=== PATIENT | male | born 1945 | race Caucasian/White ===

== ENCOUNTER 2016-10-05 10:06 | Emergency (ER) | payer MEDICARE, OTHER ==
[~2016-10-05] VITALS: Ht 177.8 cm; Wt 100.0 kg
[~2016-10-05 10:06] MED LIST: HYCOS PO; LEVA750T PO; LEVO.1 PO; PRED50TA PO; TAMS0.4C67 PO
[2016-10-05 10:08] VITALS: BP 156/95; PULSE 77; RESP 15; TEMP 98.2; O2SAT 98
[2016-10-05] MEDS ORDERED: SODIUM CHLOR 0.9% 1000 ML INJ 1,000 ML IV SCH (12:43)
--- NOTE | 2016-10-05 12:44 | PD ---
HPI Chief Complaint: Abdominal Pain Time Seen by Provider: 12:44 Travel History International Travel<30 days: No Contact w/Intl Traveler<30days: No Traveled to known affect area: No History of Present Illness HPI 70-year-old male presents to the emergency apartment for evaluation right lower quadrant pain since August 18. Patient states he has seen his primary care provider about this but has not had any imaging studies done. States the pain continues to get worse and he is concerned he may have a hernia that is trapped. Denies any nausea or vomiting. States that he has had no change in his bowel movements. He's been having normal voids all which are typically delayed for him. Denies any fever or chills. He has no other symptoms reported this time. [facility] Past Medical History Arthritis: Yes Genitourinary: Yes (BPH) Immunizations Current: No Thyroid Disease: Yes (hypo on levo) Social History Alcohol Use: Yes (ON OCCASION) Tobacco Use: No Substance Use: No Allergies-Medications (Allergen,Severity, Reaction): Coded Allergies: No Known Allergies (Unverified , 10/05/16) Reported Meds & Prescriptions Reported Meds & Active Scripts Active Reported Finasteride 5 Mg Tab 5 Mg PO DAILY Do not crush. Alfuzosin HCl ER (Alfuzosin HCl) 10 Mg Tab Levothyroxine (Levothyroxine Sodium) 75 Mcg Tab 75 Mcg PO DAILY Review of Systems Except as stated in HPI: all other systems reviewed are Neg Physical Exam Narrative GENERAL: Well-nourished ambulatory male patient in no acute distress SKIN: Warm and dry. HEAD: Atraumatic. Normocephalic. EYES: Pupils equal and round. No scleral icterus. No injection or drainage. ENT: No nasal bleeding or discharge. Mucous membranes pink and moist. NECK: Trachea midline. No JVD. CARDIOVASCULAR: Regular rate and rhythm. No murmur appreciated. RESPIRATORY: No accessory muscle use. Clear to auscultation. Breath sounds equal bilaterally. GASTROINTESTINAL: Abdomen soft, nondistended. Tenderness elicited to palpation in the right lower quadrant. No rebound tenderness or guarding. Hepatic and splenic margins not palpable. MUSCULOSKELETAL: No obvious deformities. No clubbing. No cyanosis. No edema. NEUROLOGICAL: Awake and alert. No obvious cranial nerve deficits. Motor grossly within normal limits. Normal speech. PSYCHIATRIC: Appropriate mood and affect; insight and judgment normal. Data Data Last Documented VS Vital Signs Date Time Temp Pulse Resp B/P Pulse Ox O2 Delivery O2 Flow Rate FiO2 10/05/16 16:02 72 18 146/71 97 Room Air 10/05/16 10:08 98.2 Orders Complete Blood Count With Diff (10/05/16 12:43) Comprehensive Metabolic Panel (10/05/16 12:43) Lipase (10/05/16 12:43) Prothrombin Time / Inr (Pt) (10/05/16 12:43) Act Partial Throm Time (Ptt) (10/05/16 12:43) Urinalysis - C+S If Indicated (10/05/16 12:43) Ct Abd/Pel W Iv Contrast(Rout) (10/05/16 12:43) Iv Access Insert/Monitor (10/05/16 12:43) Ecg Monitoring (10/05/16 12:43) Oximetry (10/05/16 12:43) Sodium Chlor 0.9% 1000 Ml Inj (Ns 1000 M (10/05/16 12:43) Sodium Chloride 0.9% Flush (Ns Flush) (10/05/16 12:45) Electrocardiogram (10/05/16 12:43) Oral Contrast - Adult (10/05/16 12:46) Diatrizoate Liq ( Gastroview Liq) (10/05/16 13:10) Iohexol 350 Inj (Omnipaque 350 Inj) (10/05/16 14:38) Labs Laboratory Tests Test 10/05/16 10/05/16 12:52 13:15 White Blood Count 8.0 TH/MM3 Red Blood Count 4.88 MIL/MM3 Hemoglobin 14.8 GM/DL Hematocrit 43.4 % Mean Corpuscular Volume 88.9 FL Mean Corpuscular Hemoglobin 30.2 PG Mean Corpuscular Hemoglobin 34.0 % Concent Red Cell Distribution Width 12.8 % Platelet Count 199 TH/MM3 Mean Platelet Volume 7.9 FL Neutrophils (%) (Auto) 75.7 % Lymphocytes (%) (Auto) 19.1 % Monocytes (%) (Auto) 4.3 % Eosinophils (%) (Auto) 0.7 % Basophils (%) (Auto) 0.2 % Neutrophils # (Auto) 6.1 TH/MM3 Lymphocytes # (Auto) 1.5 TH/MM3 Monocytes # (Auto) 0.3 TH/MM3 Eosinophils # (Auto) 0.1 TH/MM3 Basophils # (Auto) 0.0 TH/MM3 CBC Comment DIFF FINAL Differential Comment Prothrombin Time 10.9 SEC Prothromb Time International 1.0 RATIO Ratio Activated Partial 27.3 SEC Thromboplast Time Sodium Level 143 MEQ/L Potassium Level 3.8 MEQ/L Chloride Level 105 MEQ/L Carbon Dioxide Level 31.4 MEQ/L Anion Gap 7 MEQ/L Blood Urea Nitrogen 15 MG/DL Creatinine 0.93 MG/DL Estimat Glomerular Filtration 81 ML/MIN Rate Random Glucose 92 MG/DL Calcium Level 9.0 MG/DL Total Bilirubin 0.8 MG/DL Aspartate Amino Transf 18 U/L (AST/SGOT) Alanine Aminotransferase 21 U/L (ALT/SGPT) Alkaline Phosphatase 63 U/L Total Protein 7.3 GM/DL Albumin 3.9 GM/DL Lipase 78 U/L Urine Color YELLOW Urine Turbidity CLEAR Urine pH 5.5 Urine Specific [place] 1.023 Urine Protein NEG mg/dL Urine Glucose (UA) NEG mg/dL Urine Ketones 40 mg/dL Urine Occult Blood NEG Urine Nitrite NEG Urine Bilirubin NEG Urine Urobilinogen LESS THAN 2.0 MG/DL Urine Leukocyte Esterase SMALL Urine RBC 1 /hpf Urine WBC 2 /hpf Urine Squamous Epithelial <1 /hpf Cells Urine Mucus FEW /lpf Microscopic Urinalysis Comment CULT NOT INDICATED MDM Medical Decision Making Medical Screen Exam Complete: Yes Emergency Medical Condition: Yes Medical Record Reviewed: Yes Differential Diagnosis Colitis versus diverticulitis versus appendicitis versus muscle strain versus hernia Narrative Course 70-year-old male presents to emergency department for evaluation right lower quadrant pain. Patient appears well and without distress. His vital signs are stable. He does have tenderness elicited palpation the right lower quadrant. CBC and CMP are without acute concern. Lipase is 78. Urinalysis is with 40 ketones, small leukocyte esterase, few mucus. Culture is not indicated. CT of the abdomen and pelvis shows no acute intra-abdominal process. There is uncompensated colonic diverticulosis. Questionable masslike density within the right infrahilar region measuring 2.[address] of the chest may be helpful for further evaluation of this if clinically indicated. Multiple hepatic cysts. Mild splenomegaly. Mild hydronephrosis on the left which may be related to congenital UPJ obstruction. Multiple parapelvic cysts are also in the differential. Enlarged prostate with central calcifications. Degenerative changes and scoliosis of the thoracolumbar spine. I have discussed this with my attending physician Dr. Figueroa. She agrees the patient can be discharged home to follow-up outpatient. He is not having any chest pain or tightness. No shortness of breath. He is here today for right lower quadrant abdominal pain. Findings are discussed with the patient. He is given a copy of his CT results. He is advised to follow-up with his primary care provider for outpatient CT further evaluation of this questionable mass. He agrees with this plan of care. He agrees to return immediately with any acute worsening symptoms. 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 CT imaging of your chest is recommended. Continue medications as prescribed by your primary care provider Seek gastroenterology evaluation if symptoms persist Return immediately with any acute worsening of symptoms Med/Other Pt SpecificInfo: No Change to Meds Disposition: 01 DISCHARGE HOME Condition: Stable BrownLucia wheelervalentine LONG Oct 05, 2016 12:44
[2016-10-05] MEDS ORDERED: SODIUM CHLORIDE 0.9% FLUSH 10 ML FLUSH IV FLUSH PRN (12:45)
[2016-10-05] MEDS ORDERED: LEVO75TA3 PO (12:48)
[2016-10-05] MEDS ORDERED: FINA5TAB2 PO (12:48)
[2016-10-05] MEDS ORDERED: ALFU10TA3 (12:48)
[2016-10-05 12:53] VITALS: O2SAT 97
[2016-10-05 13:00] VITALS: BP 157/91; PULSE 61; RESP 18; O2SAT 97
[2016-10-05] MEDS ORDERED: DIATRIZOATE MEGLUM/DIATRIZOATE SOD 9 ML CUP ONE (13:10)
[2016-10-05 13:33] LABS: AUTOMATED NEUTROPHIL # 6.1 TH/MM3 (1.8-7.7); BASOPHIL % 0.2 % (0.0-2.0); EOSINOPHIL # 0.1 TH/MM3 (0-0.4); EOSINOPHIL % 0.7 % (0.0-4.0); HEMATOCRIT 43.4 % (39.0-51.0); HEMO FLAGS DIFF FINAL; LYMPH % 19.1 % (9.0-44.0); LYMPHOCYTE # 1.5 TH/MM3 (1.0-4.8); MEAN CELL VOLUME 88.9 FL (80.0-100.0); MEAN CORPUSCULAR HEMOGLOBIN 30.2 PG (27.0-34.0); MONO % 4.3 % (0.0-8.0); NEUT % 75.7 % (16.0-70.0); PLATELET COUNT 199 TH/MM3 (150-450); RED BLOOD COUNT 4.88 MIL/MM3 (4.50-5.90); RED CELL DISTRIBUTION WIDTH 12.8 % (11.6-17.2)
[2016-10-05 13:37] LABS: BLOOD, URINE NEG (NEG); COMMENT (UR) CULT NOT INDICATED; CULTURE IF INDICATED CULT NOT INDICATED; GLUCOSE,URINE NEG (NEG); KETONE, URINE 40 mg/dL (NEG); MUCUS URINE FEW /lpf (OCC); NITRITE,URINE NEG (NEG); PH, URINE 5.5 (5.0-8.5); SQUAMOUS EPITHELIAL CELL URINE <1 /hpf (0-5); URINE COLOR YELLOW (YELLW/STRAW)
[2016-10-05 13:43] LABS: APTT (PATIENT) 27.3 SEC (24.3-30.1); PROTHROMBIN TIME - PATIENT 10.9 SEC (9.8-11.6)
[2016-10-05 14:07] LABS: ANION GAP 7 MEQ/L (5-15); AST (GOT) 18 U/L (15-37); BICARBONATE 31.4 MEQ/L (21.0-32.0); BLOOD UREA NITROGEN 15 MG/DL (7-18); CHLORIDE 105 MEQ/L (98-107); GLOMERULAR FILTRATION RATE 81 ML/MIN (>89); POTASSIUM 3.8 MEQ/L (3.5-5.1); SODIUM (NA) 143 MEQ/L (136-145)
[2016-10-05 14:11] LABS: ALKALINE PHOSPHATASE 63 U/L (45-117); ALT (GPT) 21 U/L (12-78); TOTAL BILIRUBIN ADULT 0.8 MG/DL (0.2-1.0)
[2016-10-05] MEDS ORDERED: IOHEXOL 350 MG/ML 10 ML VIAL (for RAD DIAG) IV ONE (14:38)
--- NOTE | 2016-10-05 15:22 | RADRPT ---
EXAM DATE/TIME: 10/05/2016 14:36 [place] COMPARISON: No previous studies available for comparison. INDICATIONS : Right lower quadrant pain. IV CONTRAST: 96 cc Omnipaque 350 (iohexol) IV ORAL CONTRAST: Prescribed oral contrast ingested. RADIATION DOSE: 10.61 CTDIvol (mGy) MEDICAL HISTORY : Hernia, inguinal. SURGICAL HISTORY : None. ENCOUNTER: Initial ACUITY: 1 month PAIN SCALE: 4/10 LOCATION: Right lower quadrant TECHNIQUE: Volumetric scanning of the abdomen and pelvis was performed. Using automated exposure control and ad justment of the mA and/or kV according to patient size, radiation dose was kept as low as reasonably achievable to obtain optimal diagnostic quality images. FINDINGS: There is mild splenomegaly. There are scattered hepatic cysts with the largest measuring 2.2 cm in t he left lobe. No biliary ductal dilatation. The gallbladder is unremarkable. The pancreas is normal . The adrenal glands are normal. A left upper pole renal cyst is noted measuring 1.3 cm. There is m ild hydronephrosis on the left with no significant calcified obstructing calculus noted. The left ur eter is normal in caliber. The findings raise the possibility of UPJ obstruction on the left. No hy dronephrosis is noted on the right. No bowel obstruction is noted. Uncomplicated sigmoid diverticul osis is noted. The prostate gland is enlarged and demonstrates central calcifications. Left inguina l hernia repair is noted. The abdominal aorta and inferior vena cava are unremarkable. There is no paraaortic, retroperitoneal or mesenteric lymphadenopathy. No ascites is noted. No abdominal wall h ernia is noted. Degenerative changes and scoliosis of the lumbar spine are noted. There is a questi onable right infrahilar mass-like density measuring 2.[address] of the chest may be helpful for [facility] evaluation of this finding. Atelectasis and/or scarring is noted within the right lung base. The heart is enlarged. The urinary bladder is unremarkable. CONCLUSION: 1. No acute intraabdominal process. 2. Uncomplicated colonic diverticulosis. 3. Questionable mass-like density within the right infrahilar region measuring 2.[address] of the chest may be helpful for further evaluation of this finding if clinically indicated. 4. Multiple hepatic cysts. 5. Mild splenomegaly. 6. Mild hydronephrosis on the left which may be related to congenital UPJ obstruction. Multiple parap elvic cysts are also in the differential. 7. Enlarged prostate with central calcifications. 8. Degenerative changes and scoliosis of the thoracolumbar spine. Murphy Méndez MD on October 05, 2016 at 14:58 Board Certified Radiologist. This report was verified electronically.
[2016-10-05 16:02] VITALS: BP 146/71; PULSE 72; RESP 18; O2SAT 97
--- NOTE | 2016-10-07 11:23 | EKG ---
Date Performed: 10/05/2016 Time Performed: 12:57:17 PTAGE: 70 years EKG: SINUS BRADYCARDIA MARKED LEFT AXIS DEVIATION MODERATE INTRAVENTRICULAR CONDUCTION DELAY ABN ORMAL ECG PREVIOUS TRACING : 05/09/2016 10.05 DOCTOR: Alondra Hooper Interpretating Date/Time 10/07/2016 11:20:32
== END 2016-10-05 16:30 | disposition home or self-care (01) ==
LOC: NEPC 10:06
DX: R10.31 Right lower quadrant pain (principal); E03.9 Hypothyroidism, unspecified
CPT/HCPCS: 74177; 80053; 81001; 83690; 85025; 85610; 85730; 93005; 99284; J7030; Q9963; Q9967